=== PATIENT | male | born 1955 | race Caucasian/White ===

== ENCOUNTER 2021-06-01 08:27 | Emergency (ER) | payer OTHER, SELFPAY ==
[2021-06-01] VITALS (11 sets, daily range): BP systolic 107–152; BP diastolic 66–96; PULSE 52–63; TEMP 36.7; O2SAT 94–100
--- NOTE | 2021-06-01 08:45 | RT.EKG_ITS ---
APPROVED REPORT Exam: Resting ECG Reason for Exam: nausea Patient Location: E HR:58 bpm ECG Measurements Heart Rate 58 AXIS DC 102 P 79 QRSd 84 QRS -1 QT 398 T 18 QTc 393 Conclusion Sinus bradycardia...rate< 60. Peaked T waves. No old EKG to compare. No STEMI. I have reviewed and interpreted ECG and agree with software generated interpretation.
--- NOTE | 2021-06-01 08:50 | ED.GENADUL_ITS ---
Discharge Plan Disposition Patient Disposition: HOME Condition: Improving Discharge Details Clinical Impression: Nausea & vomiting Primary Care Provider: Unknown,Unknown ED Provider: Stacey Harper Home Meds and New Rx's Prescriptions: New promethazine 12.5 mg suppository 12.5 mg VA Q6H PRN (Reason: nausea and vomiting) Qty: 12 RF: 0 Discharge Instructions Instructions: Capsaicin (On the skin), Promethazine (Into the rectum), Acute Nausea and Vomiting (ED) Additional Instructions: Your nausea, vomiting and abdominal discomfort has improved here. Your labs are reassuring with no evidence of significant electrolyte abnormalities or dehydration. With your history of daily marijuana use, improvement with capsaicin cream, improvement with hot shower as well as her description of the symptoms are most concerning for cannabinoid induced hyperemesis syndrome. Please stop smoking marijuana. I have attached educational information on this subject. Encourage frequent sips of fluids to stay hydrated. You may advance your diet as tolerated please begin with bland foods such as bananas, rice, applesauce, toast. You may use the Phenergan provided 4 times daily as needed for any recurrence of your nausea or vomiting. Please follow-up with your primary care this week for reevaluation. If you develop fever/chills, abdominal pain, inability stay hydrated or other new/worsening symptoms please seek care urgently once again. Discharge Data Discharge Date/Time-TO BE ENTERED AT DEPARTURE: 06/01/21 11:36 Medical Decision Making Patient is a 66-year-old male with past medical history significant for hypertension, nephrolithiasis and GERD presenting today with chief complaint of nausea and vomiting. States he woke up this morning at 4 AM, 5 hours prior to arrival. States that since then he has vomited approximate 1 hour. Denies any hematemesis. Denies any chest pain or shortness of breath. Does state that he has some acid reflux currently. Denies any abdominal pain. Reports he was a family gathering yesterday. He denies all alcohol. He denies any marijuana use. States that he read that he has a family gathering in the same food nobody else is sick. Denies any diarrhea. Surgical history significant for inguinal hernia repair. Patient is on unknown BP medication. Does not take anything for his acid reflux. On exam, patient appears anxious and uncomfortable. Burping. Lungs clear. Normal cardiac auscultation. Abdomen is benign. He report diffuse discomfort but no focal pain elicited on exam. No peritoneal findings. No CVA tenderness. Will give zofran for nausea, protonix for his acid refulx. Will hydrate the patient. ECG obtained and reviewed by Dr. Dean, patient is in a sinus bradycardic rhythm at 58, no acute ischemic changes noted. Patient received IV zofran. He reports no improvement but does appear more comfortable. Has hiccups. Labs reviewed. Mild white count of 11.78. H&H are stable. No electrolyte abnormalities. Lipase WNL. Troponin <0.05. Requesting tylenol, will give IV. Will augment with reglan and benadryl. Reglan may also help with hiccups as well. Reevaluated patient. He reports that he continues to feel poorly. However, he is tolerating p.o. intake, appears much more comfortable and less anxious. Patient reported that he does smoke marijuana daily. Will apply capsaicin cream to his abdomen to see if this helps with his discomfort and persistent nausea. Cascaisin resolved the remaining symptoms. Patient states he is feeling much improved. Reports he is tired and is ready for d/c to home for more rest. Hedoes report now that hot shower this AM improved his symptoms. Advised frequent sips of fluids. Discussed advancement of diet. ADvised he abstain from marijuana. Will prescribe rectal phenergan to help with recurrence of symptoms. Concerned that he did not have relieve with zofran and may have difficulty keeping down PO tabs if symptmos return. Rectal option will likely provide best relief. He will be sent home with remaining capsaisin. Strict return precautions discussed. Patient lives in [facility], is returning this afternoon or tomorrow AM. He has PCP there and can f/u this week for reevaluation. All of his questions and concerns were addressed, he is in agreement with this plan. HPI General Mode of arrival: ambulatory . Date/Time Provider Initiated Documentation: 06/01/21 08:28 . Limitations to Documentation: no limitations . Information obtained by: patient, family (brother) and RN notes reviewed . History of Present Illness 66 year old M presents to the emergency department with the chief complaint of nausea and vomiting, described as moderate, Quality is described as burning (reports acid reflux), and is localized to the abdomen. Patient reports no radiation. Patient started experiencing this hour(s) (5) and it has been constant. No relieving factors improve symptom(s), No exacerbating factors reported . Patient notes loss of appetite and nausea/vomiting; denies chest pain, cough, fever/chills, rash and shortness of breath. Patient did receive the following treatments prior to arrival, none Related Data Home Medications Medication Instructions Recorded Confirmed promethazine 12.5 mg VA Q6H PRN #12 ea 06/01/21 Previous Rx's Medication Instructions Recorded promethazine 12.5 mg VA Q6H PRN #12 ea 06/01/21 Allergies Allergy/AdvReac Type Severity Reaction Status Date / Time Penicillins Allergy Unverified 06/01/21 08:34 General Stated Complaint: Nausea/Vomit/Diar CK: 3 Review of Systems Constitutional Constitutional: Reports as per HPI, Denies chills, Denies fatigue, Denies fever(s) and Denies headache(s) ENT Ears, Nose, Mouth, and Throat: Denies headache(s) Cardiovascular Cardiovascular: Reports as per HPI, Denies chest pain and Denies dyspnea Respiratory Respiratory: Reports as per HPI, Denies cough and Denies dyspnea Gastrointestinal Gastrointestinal: Reports as per HPI Genitourinary Genitourinary: Denies system reviewed and no additional complaints, except as documented (patient denies any change in urinary habits) Musculoskeletal Musculoskeletal: Reports as per HPI and Denies back pain Integumentary/Breasts Skin/Breast: Reports as per HPI and Denies rash Neurologic Neurologic: Reports as per HPI and Denies headache(s) Endocrine Endocrine: Denies fatigue [facility] Social History Smoking/Tobacco Use Status: Never Smoking risk assessment performed?: Yes Alcohol Intake: never Drug use: Daily Substance use type: marijuana Do you feel safe at home: Yes Do you feel safe in your relationship?: Yes Exam Const General: cooperative, uncomfortable, well developed, acute distress mild (appears very anxious, clutching emesis bag) and anxious Nutritional Appearance: average body habitus and well nourished Orientation: alert and awake HENOK Head: normal to inspection Mouth: moist mucous membranes Resp Effort & Inspection: normal respiratory effort, able to speak in complete sentences and no respiratory distress Auscultation: clear to auscultation bilaterally, no rales, no rhonchi and no wheezes Cardio Rate: regular rate Rhythm: regular rhythm Heart Sounds: S1 normal and S2 normal GI Inspection: normal to inspection, no edema, non-distended and no visible herniation Palpation: soft, no hepatosplenomegaly, no aortic enlargement, not firm, no guarding, no hernias, no pulsatile masses, not rigid and tender (diffusely tender, no peritoneal findings or focal area of pain) Percussion: normal to percussion Auscultation: normal bowel sounds Back/Spine/Pelvis Back: no CVA tenderness Skin General skin exam: no rashes or lesions noted Trauma: no lacerations or abrasions Neuro General: patient alert and patient awake Cognition: normal cognition Speech: speech normal Gait: normal gait Extrem General: normal to inspection, capillary refill normal, no pedal edema, no calf tenderness and other (2+ distal pulses) Psych Appearance: grossly normal and well kempt Mental Status: mental status grossly normal Speech and Movement: speech and movement normal Course Vital Signs Vital signs: Vital Signs Temperature 36.7 C 06/01/21 08:31 Temperature 36.7 C 06/01/21 08:31 Temperature Source Oral 06/01/21 08:31 Respiratory Effort Non-Labored 06/01/21 08:34 Blood Pressure Position Sitting 06/01/21 08:31 Oxygen Delivery Method Room Air 06/01/21 08:31 Oxygen Flow Rate 0 06/01/21 08:31 Pain Level 0 06/01/21 08:31
[2021-06-01 08:52] LABS: Abs Immature Grans 0.04 10^3/uL (0.0-0.06); Absolute Basophil Count 0.01 10^3/uL (0.0-0.2); Absolute Eosinophil Count 0.02 10^3/uL (0.0-0.7); Absolute Monocyte Count 0.26 10^3/uL (0.1-0.8); Absolute Neutrophil Count 10.45 10^3/uL (1.2-6.7); Basophils % 0.1; Eosinophils % 0.2; HCT 44.8 % (40.0-50.0); HGB 15.3 g/dL (13.5-17.5); Immature Grans % 0.3; Lymphocytes % 8.5; MCH 31.5 pg (27.0-33.0); MCHC 34.2 % (32.0-36.0); MCV 92.4 fL (80-95); MPV 10.7 fL (8.0-11.0); Monocytes % 2.2; Neutrophils % 88.7; Nucleated RBC 0 %; Platelet Count 189 10^3/uL (130-400); RBC 4.85 10^6/uL (4.36-5.78); RDW 12.7 % (11.8-14.1); RDW-SD 43.4 fL; WBC 11.78 10^3/uL (4.4-10.8)
[2021-06-01] MEDS: Ondansetron 4 MG/2 ML VIAL IVP (08:57)
[2021-06-01] MEDS: Normal Saline 1,000 ML 1000 ML IV (08:58)
[2021-06-01] MEDS: Normal Saline Flush 10 ML SYR IVP ×2 (08:58→09:01)
[2021-06-01 09:01] LABS: Lipase 91 U/L (73-393)
[2021-06-01] MEDS: Pantoprazole 40 MG VIAL IVP (09:01)
[2021-06-01 09:04] LABS: ALT 22 U/L (16-63); AST 17 U/L (15-37); Albumin 4.3 g/dL (3.4-5.0); Alkaline Phosphatase 55 U/L (46-116); Anion Gap 8.6 mmol/L (3-11); BUN 16 mg/dL (7-18); Bilirubin, Total 0.6 mg/dL (0.2-1.0); CO2 27.4 mmol/L (21.0-32.0); CREATININE 0.9 mg/dL (0.70-1.30); Calcium 9.2 mg/dL (8.5-10.1); Chloride 106 mmol/L (98-107); Glucose 150 mg/dL (74-106); Magnesium 1.9 mg/dL (1.8-2.4); Potassium 3.9 mmol/L (3.5-5.1); Sodium 142 mmol/L (136-145); Total Protein 7.5 g/dL (6.4-8.2)
[2021-06-01 09:11] LABS: Troponin I < 0.05 ng/mL (<0.06)
[2021-06-01] MEDS: ACETAMINOPHEN 1,000 MG/100 ML BTL 400 MG (09:13)
[2021-06-01] MEDS: Metoclopramide 10 MG/2 ML VIAL IVP (09:26)
[2021-06-01] MEDS: Normal Saline 50 ML 200 ML (09:27)
[2021-06-01] MEDS: diphenhydrAMINE 50 MG/ML VIAL 25 MG IVP (09:27)
== END 2021-06-01 11:36 | disposition home or self-care (01) ==
PROVIDERS: Emergency Provider Physician Assistant
DX: R11.2 Nausea with vomiting, unspecified (principal)
CPT/HCPCS: 36415; 80053; 83690; 93005; 96361; 96365; 96375; 99284; 83735; 84484; 85025; 93010; J0131; J1200; J2405; J2765